=== PATIENT | female | born 1955 | race Caucasian/White ===

== ENCOUNTER 2018-08-20 13:14 | Inpatient (IN) ==
[2018-08-20 13:38] LABS: Basophils # (auto) 0.03 K/uL (0-0.2); Basophils % (auto) 0.4 %; Eosinophils # (auto) 0.11 K/uL (0-0.5); Eosinophils % (auto) 1.4 %; Hematocrit (blood only) 39.2 % (37-47); Hemoglobin 13.4 g/dL (12.0-16.0); Immature Granulocytes # (auto) 0.01 K/uL (0.00-0.02); Immature Granulocytes % (auto) 0.1 %; Lymphocytes # (auto) 1.63 K/uL (1.2-3.4); Mean Corpuscular Hgb Conc 34.2 g/dL (32-36); Mean Corpuscular Volume 94.2 fL (80-100); Mean Platelet Volume 11.8 fL (7.4-10.4); Monocytes # (auto) 0.47 K/uL (0.11-0.59); Monocytes % (auto) 6.1 %; Neutrophils # (auto) 5.51 K/uL (1.4-6.5); Platelet Count 237 K/uL (130-400); RDW Coefficient of Variation 14.5 % (11.5-14.5); RDW Standard Deviation 50.2 fL (36.4-46.3); Red Blood Count 4.16 M/uL (4.2-5.4); White Blood Count 7.76 K/uL (4.8-10.8)
[2018-08-20] MEDS ORDERED: OPTIRAY 320 125ml IV PRN (13:40)
--- NOTE | 2018-08-20 13:42 | CT Scan Report ---
CT SCAN OF THE BRAIN WITHOUT IV CONTRAST CLINICAL HISTORY: Strokelike symptoms. COMPARISON STUDY: No priors. TECHNIQUE: Unenhanced axial CT scan of the brain is performed from the vertex to the skull base. A do se lowering technique was utilized adhering to the principles of ALARA. FINDINGS: Brain parenchyma: The brain parenchyma is normal in appearance. There is no hemorrhage, mass effect, or evidence of acute territorial ischemia by CT criteria. Cosme-white matter differentiation is preser ravi. No extra-axial fluid collection is seen. Ventricles, sulci, cisterns: Normal in configuration. Intracranial vasculature: The visualized intracranial vessels at the skull base are normal in appeara nce. Calvarium: Unremarkable. Sinuses and mastoids: A subcentimeter osteoma is noted within the left ethmoid sinus. A retention cys t is noted in left sphenoid sinus. The visualized paranasal sinuses are otherwise clear. The mastoid air cells are well pneumatized. Orbits: The bony orbits are grossly intact. IMPRESSION: There is no hemorrhage, mass effect, or evidence of acute territorial ischemia by CT sal collazo. Electronically signed by: Donald Novoa M.D. 08/20/2018 1:37 PM
[2018-08-20 13:49] LABS: Partial Thromboplastin Ratio 0.9; Partial Thromboplastin Time 23.7 Seconds (21.0-31.0); Prothrombin Time 10.7 Seconds (9.0-12.0)
--- NOTE | 2018-08-20 13:50 | CT Scan Report ---
CT angio head w con CLINICAL HISTORY: 63 years-old Female presenting with code stroke. TECHNIQUE: Multidetector CT angiography of the head was performed after the administration of intrave nous contrast. 3-D volumetric and/or maximum intensity projection (MIP) images were subsequently betty nstructed for review. IV contrast: 119 mL of Optiray 320. One or more dose lowering techniques were u sed consistent with the principles of ALARA (as low as reasonably achievable), including automatic ex posure control, mA or kV adjustment to individual patient size, and/or use of iterative reconstructio n. COMPARISON: None. CT DOSE (mGy.cm): The estimated cumulative dose is 1076.09. FINDINGS: Pillar Worker topogram: Unremarkable. Evaluation is mildly degraded by opacification of the intracranial veins. Anterior circulation: Intracranial portions of the internal carotid arteries patent to the level of t he termini. Anterior cerebral arteries patent. Middle cerebral arteries patent. Anterior communicatin g artery hypoplastic or aplastic. Posterior circulation: Codominant vertebral arteries. Intradural portions of the vertebral arteries p atent. Posterior inferior cerebellar arteries patent. Basilar artery patent. Anterior inferior cerebe llar arteries poorly visualized. Superior cerebellar arteries patent. Posterior cerebral arteries pat ent. Right posterior communicating artery patent. Left P-comm hypoplastic or aplastic. Dural venous sinuses: Patent. Other: Allowing for the phase of contrast, brain parenchyma within normal limits. Calvarium intact. IMPRESSION: 1. No evidence of aneurysm, focal vessel occlusion, or significant stenosis of the intracranial loki catalino. Electronically signed by: Porter Serna M.D. 08/20/2018 1:48 PM
[2018-08-20 13:56] LABS: Alanine Aminotransferase 34 U/L (12-78); Albumin Level 4.1 gm/dl (3.4-5.0); Aspartate Aminotransferase 30 U/L (15-37); BUN Creatinine Ratio 16.2 (10-20); Blood Urea Nitrogen 15 mg/dl (7-18); Calcium 9.2 mg/dl (8.5-10.1); Carbon Dioxide 24 mmol/L (21-32); Chloride 109 mmol/L (98-107); Creatinine Clr Calc Pharmacy 64.2 ml/min; Est GFR (African American) 75.3; Est GFR (Non-African American) 64.9; Glucose 197 mg/dl (70-99); Potassium 3.8 mmol/L (3.5-5.1); Sodium 141 mmol/L (136-145)
--- NOTE | 2018-08-20 13:58 | CT Scan Report ---
NECK CTA HISTORY: Stroke symptoms. TECHNIQUE: Multiaxial CT images of the neck were performed following the intravenous administration o f contrast to evaluate the major cervical vessels. Maximum intensity projection images were also obta ined. All measurements were calculated based on NASCET criteria. A dose lowering technique was utili zed adhering to the principles of ALARA. COMPARISON STUDY: None. FINDINGS: The aortic arch and proximal great vessels are widely patent. There is no significant sten osis, occlusion, or dissection identified within the bilateral common carotid, internal carotid, or v ertebral arteries. Mild calcified plaque within the bilateral carotid bifurcations. IMPRESSION: No significant stenosis, occlusion, or dissection identified within the carotid or vertebral arteries . Electronically signed by: Abdoul Haque M.D. 08/20/2018 1:57 PM
[2018-08-20 14:00] LABS: Albumin Globulin Ratio 1.1 (0.9-2); Alkaline Phosphatase 55 U/L (45-117); Bilirubin,Total 0.3 mg/dl (0.2-1); Globulin 3.7 gm/dl (2.5-4.0); Total Protein 7.8 gm/dl (6.4-8.2); Troponin I < 0.015 ng/ml (0-0.045)
[2018-08-20] MEDS ORDERED: ASPIRIN CHEW 324 MG PO STA (14:11)
[2018-08-20] MEDS ORDERED: SODIUM CHLORIDE 0.9% 1000ML 1,000 ML IV SCH (14:15)
[2018-08-20 14:21] LABS: iSTAT Creatinine 0.7 mg/dl (0.6-1.3); iSTAT Potassium 3.8 mEq/L (3.3-5.0)
[2018-08-20 14:22] LABS: iSTAT Hemoglobin 13.9 g/dl (12.0-16.0); iSTAT Ionized Calcium 1.17 mmol/l (1.12-1.32)
--- NOTE | 2018-08-20 15:29 | History & Physical Report ---
Date of Service August 20, 2018 Assessment & Plan (1) Expressive aphasia: -Admit to telemetry -Patient and her were driving home from [place] (where they have been living since April since patient's underwent double lung transplant), when patient developed sudden onset of difficulty speaking -In the ED, stroke alert was called however patient was not deemed to be a TPA candidate -Risk factors for CVA: HTN, dyslipidemia, current smoker; no history of diabetes, however glucose 197 on labs -CT head, CTA head/neck negative for acute findings -Patient received full dose aspirin in the ED -Brain MRI, resting echo -Neurochecks -Continue aspirin 81 mg daily and patient's home dose of atorvastatin -Neurology consult, case discussed with Azra Seymour PA-C (2) Hypertension: -Will hold home doses of clonidine and amlodipine/benazepril to allow for permissive hypertension in the setting of possible acute CVA (3) Hyperglycemia: -Glucose noted to be 197 on labs -No history of diabetes -will check BSG's, providing NovoLog if needed -Check Hgb A1c (4) Dyslipidemia: -Continue statin (5) Depression: -Continue BuSpar and venlafaxine (6) DVT prophylaxis: -SQ Lovenox History of Present Illness Chief Complaint: Difficulty speaking Primary Care Provider: Dulce Whittaker DO 63-year-old female who presents to the ED with difficulty speaking. Patient and her were driving back from [place], where they had been living since April after her underwent a double lung transplant. Around 1130, while driving, patient had difficulty speaking. She continued to drive for about another hour until they stopped at a restaurant for something to eat. Her symptoms continued and EMS was called and patient was brought to the ED for further evaluation. Stroke alert was called however patient was not felt to be a TPA candidate. With her symptoms today, there was no associated facial droop, slurred speech, unilateral weakness, numbness, tingling. No headache or blurred vision. Patient reports she has been feeling well recently, however has been under a large amount of stress secondary to her 's recent health issues. Patient denies chest pain shortness of breath. No lightheadedness, dizziness, diaphoresis, syncopal events. She denies abdominal pain, nausea, vomiting, d iarrhea. No fevers chills. She denies any urinary symptoms. In the ED, head CT and head/neck CTA are negative for acute findings. Patient was given a full dose aspirin. Allergies Allergy/AdvReac Type Severity Reaction Status Date / Time No Known Drug Allergies Allergy Unknown . Verified 08/20/18 17:19 Home Medications Home Medications Medication Instructions Recorded Confirmed Type amlodipine-atorvastatin 1 tab PO DAILY 08/20/18 08/20/18 History aspirin 81 mg PO DAILY 08/20/18 08/20/18 History atorvastatin 40 mg PO HS 08/20/18 08/20/18 History buspirone 10 mg PO BID 08/20/18 08/20/18 History cholecalciferol (vitamin D3) 1,000 unit PO DAILY 08/20/18 08/20/18 History [Vitamin D3] clonidine HCl 0.1 mg PO TID 08/20/18 08/20/18 History fexofenadine [Samia Allergy] 180 mg PO DAILY 08/20/18 08/20/18 History methocarbamol 750 mg PO TID PRN 08/20/18 08/20/18 History montelukast 10 mg PO PM 08/20/18 08/20/18 History pyridoxine (vitamin B6) [Vitamin 100 mg PO BID 08/20/18 08/20/18 History B-6] rabeprazole 20 mg PO DAILY PRN 08/20/18 08/20/18 History selenium 200 mcg PO DAILY 08/20/18 08/20/18 History venlafaxine 75 mg PO HS 08/20/18 08/20/18 History Past Med/Surg History Medical History Depression (Chronic) Osteoporosis (Chronic) Hypertension (Chronic) Moderate aortic regurgitation (Chronic) Allergic rhinitis (Chronic) Dyslipidemia (Chronic) DVT prophylaxis Hyperglycemia Surgical History History of tonsillectomy and adenoidectomy (Chronic) S/P LIONEL-BSO (Chronic) Family History Aunt Stroke Father Atrial fibrillation Aortic aneurysm Mother Sudden , Onset Age: 36 "Heart attack" Social History Communication Ability: Effective Ccie Required: No Beliefs That Will Affect Care: None Current Living Situation: Spouse Current Living Situation Comment: 3 story house with Other Information That Helps Us Care for You: No Feels Safe at Home: Yes Safety Concerns: Feels Safe At This Time Smoking Status: Current every day smoker Hx Alcohol Use: No Hx Substance Use: No Review of Systems ROS per HPI, all other systems reviewed and negative Physical Exam Vital Signs (Past 24 Hours): Last Vital Signs Temp 36.8 C 08/20/18 13:22 Pulse 96 H 08/20/18 13:56 Resp 18 08/20/18 13:56 BP 152/59 H 08/20/18 13:56 Pulse Ox 99 08/20/18 13:56 Constitutional: WD/WN, vitals as above Eyes: PERRL, conjunctivae normal, anicteric sclerae ENMT: external ear and nose normal, oropharynx normal Respiratory: normal respiratory effort, lungs clear to auscultation Cardiovascular: Rate/Rhythm: regular rate and regular rhythm Vessels: n ormal peripheral pulses Extremities: no edema Gastrointestinal (Abdomen): normal bowel sounds, soft, nontender, no hepatosplenomegaly Musculoskeletal: no cyanosis or clubbing, extremities motor strength 5/5 Skin: no rashes, warm and dry Neurologic: awake Speech / Cognition: + expressive aphasia (Mild) Motor/Sensory: no pronator drift Cranial Nerves: PERRL, normal accommodation, EOM intact bilaterally, normal facial strength, tongue midline, able to rotate head bilaterally and no nystagmus Coordination: normal [id number] test and normal [id number]-[id number] test Psychiatric: A+Ox3, euthymic affect Results & Data Laboratory Results Laboratory Last Values WBC 7.76 K/uL (4.8-10.8) 08/20/18 13:27 RBC 4.16 M/uL (4.2-5.4) L 08/20/18 13:27 Hgb 13.4 g/dL (12.0-16.0) 08/20/18 13:27 POC Hgb 13.9 g/dl (12.0-16.0) 08/20/18 13:32 Hct 39.2 % (37-47) 08/20/18 13:27 POC Hct 41 % (37-47) 08/20/18 13:32 MCV 94.2 fL (80-100) 08/20/18 13:27 MCH 32.2 pg (25-34) 08/20/18 13:27 MCHC 34.2 g/dL (32-36) 08/20/18 13:27 RDW Std Deviation 50.2 fL (36.4-46.3) H 08/20/18 13:27 RDW Coeff of Jelena 14.5 % (11.5-14.5) 08/20/18 13:27 Plt Count 237 K/uL (130-400) 08/20/18 13:27 MPV 11.8 fL (7.4-10.4) H 08/20/18 13:27 Immature Gran % (Auto) 0.1 % 08/20/18 13:27 Neut % (Auto) 71.0 % 08/20/18 13:27 Lymph % (Auto) 21.0 % 08/20/18 13:27 [place] % (Auto) 6.1 % 08/20/18 13:27 Eos % (Auto) 1.4 % 08/20/18 13:27 Baso % (Auto) 0.4 % 08/20/18 13:27 Immature Gran # (Auto) 0.01 K/uL (0.00-0.02) 08/20/18 13:27 Neut # (Auto) 5.51 K/uL (1.4-6.5) 08/20/18 13:27 Lymph # (Auto) 1.63 K/uL (1.2-3.4) 08/20/18 13:27 [place] # (Auto) 0.47 K/uL (0.11-0.59) 08/20/18 13:27 Eos # (Auto) 0.11 K/uL (0-0.5) 08/20/18 13:27 Baso # (Auto) 0.03 K/uL (0-0.2) 08/20/18 13:27 PT 10.7 Seconds (9.0-12.0) 08/20/18 13:27 INR 1.0 (0.9-1.1) 08/20/18 13:27 APTT 23.7 Seconds (21.0-31.0) 08/20/18 13:27 PTT Ratio 0.9 08/20/18 13:27 POC Sodium 141 mEq/L (135-144) 08/20/18 13:32 Sodium 141 mmol/L (136-145) 08/20/18 13:27 POC Potassium 3.8 mEq/L (3.3-5.0) 08/20/18 13:32 Potassium 3.8 mmol/L (3.5-5.1) 08/20/18 13:27 POC Chloride 105 mEq/L (101-112) 08/20/18 13:32 Chloride 109 mmol/L (98-107) H 08/20/18 13:27 Carbon Dioxide 24 mmol/L (21-32) 08/20/18 13:27 POC Total CO2 23 mEq/l (24-31) L 08/20/18 13:32 Anion Gap 7.0 (3-11) 08/20/18 13:27 POC Anion Gap 18.0 mmol/L (16-25) 08/20/18 13:32 POC BUN 16 mg/dl (7-18) 08/20/18 13:32 BUN 15 mg/dl (7-18) 08/20/18 13:27 Creatinine 0.93 mg/dl (0.6-1.2) 08/20/18 13:27 POC Creatinine 0.7 mg/dl (0.6-1.3) 08/20/18 13:32 Est Cr Clr Drug Dosing 64.2 ml/min 08/20/18 13:27 Est GFR ( Amer) 75.3 08/20/18 13:27 Est GFR (Non-Af Amer) 64.9 08/20/18 13:27 BUN/Creatinine Ratio 16.2 (10-20) 08/20/18 13:27 Glucose 197 mg/dl (70-99) H 08/20/18 13:27 POC Glucose (other) 199 mg/dl (70-99) H 08/20/18 13:32 Calcium 9.2 mg/dl (8.5-10.1) 08/20/18 13:27 POC Ioniz Calcium Jasmine 1.17 mmol/l (1.12-1.32) 08/20/18 13:32 Magnesium 2.0 mg/dl (1.8-2.4) 08/20/18 13:27 Total Bilirubin 0.3 mg/dl (0.2-1) 08/20/18 13:27 AST 30 U/L (15-37) 08/20/18 13:27 ALT 34 U/L (12-78) 08/20/18 13:27 Alkaline Phosphatase 55 U/L (45-117) 08/20/18 13:27 Troponin I < 0.015 ng/ml (0-0.045) 08/20/18 13:27 Total Protein 7.8 gm/dl (6.4-8.2) 08/20/18 13:27 Albumin 4.1 gm/dl (3.4-5.0) 08/20/18 13:27 Globulin 3.7 gm/dl (2.5-4.0) 08/20/18 13:27 Albumin/Globulin Ratio 1.1 (0.9-2) 08/20/18 13:27 Blood Type A Positive 08/20/18 13:25 Antibody Screen NEGATIVE 08/20/18 13:[address] IMPRESSION: There is no hemorrhage, mass effect, or evidence of acute territorial ischemia by CT criteria. HEAD CTA IMPRESSION: 1. No evidence of aneurysm, focal vessel occlusion, or significant stenosis of the intracranial arteries. NECK CTA IMPRESSION: No significant stenosis, occlusion, or dissection identified within the carotid or vertebral arteries. Code Status & VTE Plan VTE Prophylaxis Plan VTE Prophylaxis will be ordered: Yes Supervising Physician Co-Signing Physician Notes Patient is a 63-year-old female with history of hypertension, dyslipidemia, depression and other problems presents with history of word finding difficulty. Patient had sudden onset of symptoms at around 11 AM this morning. Patient currently has been undergoing through a lot of stress lately. Patient denied any history of weakness numbness, incontinence, facial deformity, change in vision. Patient symptoms gradually have been improving since presentation in ED. Imaging studies including CT head, CTA of the head and neck showed no acute findings. On exam patient is moderately built and nourished, tearful during my conversation, normocephalic atraumatic, lungs are clear to auscultation, S1-S2, no murmur, abdomen is soft nontender, no sensorimotor deficits, no pedal edema. Currently able to speak in full sentences. Patient is admitted in telemetry unit for management of expressive aphasia, rule out CVA.DD: Conversion disorder. Patient is on aspirin 81 mg and Lipitor 40 mg at home. I had Plavix daily. Stroke workup including MRI, echo, neuro checks. Neurology is consulted. Agree with holding hypertension meds in setting of acute CVA. Check A1c to rule out DM II. Consider Psychiatry consultation if needed. I personally reviewed the record. Patient is interviewed and examined at bedside. Patient's care is coordinated with Jacquie Bautista NP. Please refer to the documentation above for details of patient's presentation and for discussion of other issues.
[2018-08-20] MEDS ORDERED: PHARMACIST DISCHARGE MED REC CONSULT PRN (16:47)
[2018-08-20] MEDS ORDERED: LORazepam 1 MG/2 ML VIAL IV PRN (17:13)
[2018-08-20] MEDS ORDERED: CARBOHYDRATES FOR HYPOGLYCEMIA PO PRN (19:56)
[2018-08-20] MEDS ORDERED: GLUCOSE 10 TABS/TUBE PO PRN (19:56)
[2018-08-20] MEDS ORDERED: GLUCAGON FOR INJ 1 MG VIAL SQ PRN (19:56)
[2018-08-20] MEDS ORDERED: DEXTROSE 50% 50 ML SYRINGE IV PRN (19:56)
[2018-08-20] MEDS ORDERED: GLUCOSE 40% GEL 15 GM TUBE PO PRN (19:56)
--- NOTE | 2018-08-20 20:01 | Emergency Department Note ---
Entered by Judi Vargas acting as a scribe for History of Present Illness General Chief complaint: Stroke/CVA Symptoms Source: patient Limitations: no limitations History of Present Illness Provider complaint: stroke Onset (ago): hour(s) 2 Location: chest Associated symptoms: + other (+difficulty finding words, +slurred speech) Treatments prior to arrival: none The patient is a 63 year old female who presents to the Emergency Room with complaints of difficulty speaking that began 2 hours prior to arrival. The patient states that she had difficulty finding her words and had slurred speech. The patient denies being on blood thinners. No falls or trauma. The patient denies a history of strokes, kidney disease, intracranial tumors, or internal bleeds. Home Medications Home Medications Medication Instructions Recorded Confirmed Type amlodipine-atorvastatin 1 tab PO DAILY 08/20/18 08/20/18 History aspirin 81 mg PO DAILY 08/20/18 08/20/18 History atorvastatin 40 mg PO HS 08/20/18 08/20/18 History buspirone 10 mg PO BID 08/20/18 08/20/18 History cholecalciferol (vitamin D3) 1,000 unit PO DAILY 08/20/18 08/20/18 History [Vitamin D3] clonidine HCl 0.1 mg PO TID 08/20/18 08/20/18 History fexofenadine [Samia Allergy] 180 mg PO DAILY 08/20/18 08/20/18 History methocarbamol 750 mg PO TID PRN 08/20/18 08/20/18 History montelukast 10 mg PO PM 08/20/18 08/20/18 History pyridoxine (vitamin B6) [Vitamin 100 mg PO BID 08/20/18 08/20/18 History B-6] rabeprazole 20 mg PO DAILY PRN 08/20/18 08/20/18 History selenium 200 mcg PO DAILY 08/20/18 08/20/18 History venlafaxine 75 mg PO HS 08/20/18 08/20/18 History Allergies Allergy/AdvReac Type Severity Reaction Status Date / Time No Known Drug Allergies Allergy Unknown . Verified 08/20/18 17:19 Past Med/Surg History Medical History Depression (Chronic) Osteoporosis (Chronic) Hypertension (Chronic) Moderate aortic regurgitation (Chronic) Allergic rhinitis (Chronic) Dyslipidemia (Chronic) DVT prophylaxis Hyperglycemia Surgical History History of tonsillectomy and adenoidectomy (Chronic) S/P LIONEL-BSO (Chronic) Family History Aunt Stroke Father Atrial fibrillation Aortic aneurysm Mother Sudden , Onset Age: 36 "Heart attack" Social History Communication Ability: Effective Costume Maker Required: No Beliefs That Will Affect Care: None Current Living Situation: Spouse Current Living Situation Comment: 3 story house with Other Information That Helps Us Care for You: No Feels Safe at Home: Yes Safety Concerns: Feels Safe At This Time Smoking Status: Current every day smoker Hx Alcohol Use: No Hx Substance Use: No Review of Systems See HPI for pertinent positives & negatives. and A total of 10 systems reviewed and were otherwise negative See HPI for pertinent positives & negatives. A total of 10 systems reviewed and were otherwise negative. Physical Exam Vital Signs Vital Signs - 24 hr 08/20/18 13:20 08/20/18 13:22 08/20/18 13:24 Temperature 36.8 C Temperature Source Oral Sepsis Recent Fever Within 48 Hours No Sepsis New/Unexplained Change in Mental Status No Sepsis Action Taken by Nursing No Action Required Pulse Rate 84 95 H 94 H Pulse Rate [Apical] Pulse Rate from SpO2 Sensor 95 H Pulse Rhythm [Apical] Pulse Strength [Apical] Respiratory Rate 21 20 15 Respiratory Effort / Characteristics Non-Labored Respiratory Depth Normal Respiratory Pattern Regular Blood Pressure 149/81 H 149/81 H Blood Pressure [Right Arm] Blood Pressure Mean 103 103 Blood Pressure Mean [Right Arm] Blood Pressure Position [Right Arm] Pulse Oximetry 99 98 Oxygen Delivery Method Room Air 08/20/18 13:39 08/20/18 13:40 08/20/18 13:46 Temperature Temperature Source Sepsis Recent Fever Within 48 Hours Sepsis New/Unexplained Change in Mental Status Sepsis Action Taken by Nursing Pulse Rate 90 87 Pulse Rate [Apical] 88 Pulse Rate from SpO2 Sensor 89 88 Pulse Rhythm [Apical] Regular Pulse Strength [Apical] Respiratory Rate 21 21 16 Respiratory Effort / Characteristics Respiratory Depth Normal Respiratory Pattern Blood Pressure 152/59 H Blood Pressure [Right Arm] 152/59 H Blood Pressure Mean 90 Blood Pressure Mean [Right Arm] 90 Blood Pressure Position [Right Arm] Pulse Oximetry 88 L 100 95 Oxygen Delivery Method Room Air 08/20/18 13:56 08/20/18 17:00 Temperature 36.6 C Temperature Source Oral Sepsis Recent Fever Within 48 Hours Sepsis New/Unexplained Change in Mental Status Sepsis Action Taken by Nursing Pulse Rate 71 Pulse Rate [Apical] 96 H 73 Pulse Rate from SpO2 Sensor Pulse Rhythm [Apical] Regular Regular Pulse Strength [Apical] Normal Respiratory Rate 18 20 Respiratory Effort / Characteristics Non-Labored Spontaneous Non-Labored Spontaneous Respiratory Depth Normal Normal Respiratory Pattern Regular Regular Blood Pressure Blood Pressure [Right Arm] 152/59 H 144/81 H Blood Pressure Mean Blood Pressure Mean [Right Arm] 90 102 Blood Pressure Position [Right Arm] Sitting Pulse Oximetry 99 95 Oxygen Delivery Method Room Air Room Air HENT: Exam performed. Head: Normocephalic and atraumatic. Right Ear: External ear normal. No mastoid tenderness. Left Ear: External ear normal. No mastoid tenderness. Mouth/Throat: The oropharynx is clear and moist. No trismus in the jaw. No dental abscesses or uvula swelling. No oropharyngeal exudate or tonsillar abscesses. EYES: Conjunctivae and EOM are normal. Pupils are equal, round, and reactive to light. Right eye exhibits no discharge. Left eye exhibits no discharge. No scleral icterus. NECK: Normal range of motion. Neck supple. No JVD present. No spinous process tenderness present. No carotid bruit present. No rigidity. No tracheal deviation and normal range of motion present. No Brudzinski's sign and no Kernig's sign noted. CV: Normal rate, regular rhythm, normal heart sounds and intact distal pulses. There is no peripheral edema. Palpable radial pulses bue. PULM/CHEST: Effort normal and breath sounds normal. No respiratory distress. No stridor. She has no wheezes. She has no rales. Chest Wall: She exhibits no tenderness. ABD: The abdomen is soft. Bowel sounds are normal. She has no distension. No mass is present. There is no tenderness. There is no rebound, no guarding, no Brian's sign and no tenderness at McBurney's point. Rovsig negative MUSC/SKEL: Normal range of motion. There is no peripheral edema, tenderness or deformity. LYMPH: No cervical adenopathy. NEURO: NIH stroke scale of 2: 1 for dysarthria and 1 for aphasia. SKIN: Skin is warm and dry. She is not diaphoretic. Course 1320: Past medical records reviewed. The patient was evaluated in room A2, and a complete history and physical examination were performed. Code stroke was called. 1331: I discussed the patient's case with Dr. Rhoda Garcia at [facility] who states that he will log in to evaluate the patient. 1340: The patient's CT is negative for acute bleed. Dr.Ibrahimi Garcia at [facility] is on the video screen evaluating the patient. 1413: CTAs of the head and neck are negative. Dr. Duong at [facility] states that patient now has a stroke scale of 1. Dr. Duong, The family decided against giving the patient TPA due to the patient having a low score of 1 on the stroke scale. The patient will be admitted. 1425: [facility] the [facility] who will evaluate the patient for further hospitalization. She states to admit to Dr. Santos. Consultations Consultation #1: Dr.Ibrahimi Alexander at [facility] Time: 13:31 Consultation #2: Dr.Ibrahimi Garcia at [facility] Time: 13:40 Consultation #3: Dr. Rhoda Garcia at [facility] Time: 14:13 Additional Consultation(s): 1425: Jacquie Glass [facility] Hospitalist Administered Medications Lorazepam (Ativan) 1 mg in 2 mls @ 2 mls/min IV ONE PRN PRN Reason: MRI pre med Stop: 09/19/18 17:12 Last Admin: 08/20/18 19:13 Dose: 1 mls/min Documented by: [id number] Discontinued Medications Aspirin (Aspirin) 324 mg PO NOW STA Stop: 08/20/18 14:12 Last Admin: 08/20/18 14:15 Dose: 324 mg Documented by: [id number] Sodium Chloride (Nss 1000ml) 1,000 mls @ 80 mls/hr IV .[id number] AMANDA Stop: 09/19/18 14:14 Last Admin: 08/20/18 14:16 Dose: 80 mls/hr Documented by: [id number] Ioversol (Optiray 320 125ml) 119 ml IV ONCE PRN PRN Reason: Interaction Checking Stop: 08/24/18 13:39 Last Admin: 08/20/18 13:40 Dose: 119 ml Documented by: [id number] Medical Decision Making Medical Records Attestation: I reviewed the patient's medical records. Home Medications Current Medication List: was personally reviewed by me Laboratory Data Attestation: I reviewed the patient's lab results. Result diagrams: 08/20/18 13:27 08/20/18 13:27 Lab Results 08/20/18 08/20/18 08/20/18 Range/Units 13:25 13:27 13:27 WBC 7.76 (4.8-10.8) K/uL RBC 4.16 L (4.2-5.4) M/uL Hgb 13.4 (12.0-16.0) g/dL POC Hgb (12.0-16.0) g/dl Hct 39.2 (37-47) % POC Hct (37-47) % MCV 94.2 (80-100) fL MCH 32.2 (25-34) pg MCHC 34.2 (32-36) g/dL RDW Std Deviation 50.2 H (36.4-46.3) fL RDW Coeff of Jelena 14.5 (11.5-14.5) % Plt Count 237 (130-400) K/uL MPV 11.8 H (7.4-10.4) fL Immature Gran % (Auto) 0.1 % Neut % (Auto) 71.0 % Lymph % (Auto) 21.0 % Addison % (Auto) 6.1 % Eos % (Auto) 1.4 % Baso % (Auto) 0.4 % Immature Gran # (Auto) 0.01 (0.00-0.02) K/uL Neut # (Auto) 5.51 (1.4-6.5) K/uL Lymph # (Auto) 1.63 (1.2-3.4) K/uL Addison # (Auto) 0.47 (0.11-0.59) K/uL Eos # (Auto) 0.11 (0-0.5) K/uL Baso # (Auto) 0.03 (0-0.2) K/uL PT 10.7 (9.0-12.0) Seconds INR 1.0 (0.9-1.1) APTT 23.7 (21.0-31.0) Seconds PTT Ratio 0.9 POC Sodium (135-144) mEq/L Sodium (136-145) mmol/L POC Potassium (3.3-5.0) mEq/L Potassium (3.5-5.1) mmol/L POC Chloride (101-112) mEq/L Chloride (98-107) mmol/L Carbon Dioxide (21-32) mmol/L POC Total CO2 (24-31) mEq/l Anion Gap (3-11) POC Anion Gap (16-25) mmol/L POC BUN (7-18) mg/dl BUN (7-18) mg/dl Creatinine (0.6-1.2) mg/dl POC Creatinine (0.6-1.3) mg/dl Est Cr Clr Drug Dosing ml/min Est GFR ( Amer) Est GFR (Non-Af Amer) BUN/Creatinine Ratio (10-20) Glucose (70-99) mg/dl POC Glucose (other) (70-99) mg/dl Calcium (8.5-10.1) mg/dl POC Ioniz Calcium Jasmine (1.12-1.32) mmol/l Magnesium (1.8-2.4) mg/dl Total Bilirubin (0.2-1) mg/dl AST (15-37) U/L ALT (12-78) U/L Alkaline Phosphatase (45-117) U/L Troponin I (0-0.045) ng/ml Total Protein (6.4-8.2) gm/dl Albumin (3.4-5.0) gm/dl Globulin (2.5-4.0) gm/dl Albumin/Globulin Ratio (0.9-2) Blood Type A Positive Antibody Screen NEGATIVE 08/20/18 08/20/18 Range/Units 13:27 13:32 WBC (4.8-10.8) K/uL RBC (4.2-5.4) M/uL Hgb (12.0-16.0) g/dL POC Hgb 13.9 (12.0-16.0) g/dl Hct (37-47) % POC Hct 41 (37-47) % MCV (80-100) fL MCH (25-34) pg MCHC (32-36) g/dL RDW Std Deviation (36.4-46.3) fL RDW Coeff of Jelena (11.5-14.5) % Plt Count (130-400) K/uL MPV (7.4-10.4) fL Immature Gran % (Auto) % Neut % (Auto) % Lymph % (Auto) % Addison % (Auto) % Eos % (Auto) % Baso % (Auto) % Immature Gran # (Auto) (0.00-0.02) K/uL Neut # (Auto) (1.4-6.5) K/uL Lymph # (Auto) (1.2-3.4) K/uL Addison # (Auto) (0.11-0.59) K/uL Eos # (Auto) (0-0.5) K/uL Baso # (Auto) (0-0.2) K/uL PT (9.0-12.0) Seconds INR (0.9-1.1) APTT (21.0-31.0) Seconds PTT Ratio POC Sodium 141 (135-144) mEq/L Sodium 141 (136-145) mmol/L POC Potassium 3.8 (3.3-5.0) mEq/L Potassium 3.8 (3.5-5.1) mmol/L POC Chloride 105 (101-112) mEq/L Chloride 109 H (98-107) mmol/L Carbon Dioxide 24 (21-32) mmol/L POC Total CO2 23 L (24-31) mEq/l Anion Gap 7.0 (3-11) POC Anion Gap 18.0 (16-25) mmol/L POC BUN 16 (7-18) mg/dl BUN 15 (7-18) mg/dl Creatinine 0.93 (0.6-1.2) mg/dl POC Creatinine 0.7 (0.6-1.3) mg/dl Est Cr Clr Drug Dosing 64.2 ml/min Est GFR ( Amer) 75.3 Est GFR (Non-Af Amer) 64.9 BUN/Creatinine Ratio 16.2 (10-20) Glucose 197 H (70-99) mg/dl POC Glucose (other) 199 H (70-99) mg/dl Calcium 9.2 (8.5-10.1) mg/dl POC Ioniz Calcium Jasmine 1.17 (1.12-1.32) mmol/l Magnesium 2.0 (1.8-2.4) mg/dl Total Bilirubin 0.3 (0.2-1) mg/dl AST 30 (15-37) U/L ALT 34 (12-78) U/L Alkaline Phosphatase 55 (45-117) U/L Troponin I < 0.015 (0-0.045) ng/ml Total Protein 7.8 (6.4-8.2) gm/dl Albumin 4.1 (3.4-5.0) gm/dl Globulin 3.7 (2.5-4.0) gm/dl Albumin/Globulin Ratio 1.1 (0.9-2) Blood Type Antibody Screen Imaging Data Radiologist's Impression: Radiology results as stated below per my review and the radiologist's interpretation: CT SCAN OF THE BRAIN WITHOUT IV CONTRAST CLINICAL HISTORY: Strokelike symptoms. COMPARISON STUDY: No priors. TECHNIQUE: Unenhanced axial CT scan of the brain is performed from the vertex to the skull base. A dose lowering technique was utilized adhering to the principles of ALARA. FINDINGS: Brain parenchyma: The brain parenchyma is normal in appearance. There is no hemorrhage, mass effect, or evidence of acute territorial ischemia by CT criteria. Cosme-white matter differentiation is preserved. No extra-axial fluid collection is seen. Ventricles, sulci, cisterns: Normal in configuration. Intracranial vasculature: The visualized intracranial vessels at the skull base are normal in appearance. Calvarium: Unremarkable. Sinuses and mastoids: A subcentimeter osteoma is noted within the left ethmoid sinus. A retention cyst is noted in left sphenoid sinus. The visualized paranasal sinuses are otherwise clear. The mastoid air cells are well pneumatized. Orbits: The bony orbits are grossly intact. IMPRESSION: There is no hemorrhage, mass effect, or evidence of acute territorial ischemia by CT criteria. Electronically signed by: Donald Novoa M.D. 08/20/2018 1:37 PM NECK CTA HISTORY: Stroke symptoms. TECHNIQUE: Multiaxial CT images of the neck were performed following the intravenous administration of contrast to evaluate the major cervical vessels. Maximum intensity projection images were also obtained. All measurements were calculated based on NASCET criteria. A dose lowering technique was utilized adhering to the principles of ALARA. COMPARISON STUDY: None. FINDINGS: The aortic arch and proximal great vessels are widely patent. There is no significant stenosis, occlusion, or dissection identified within the bilateral common carotid, internal carotid, or vertebral arteries. Mild calcified plaque within the bilateral carotid bifurcations. IMPRESSION: No significant stenosis, occlusion, or dissection identified within the carotid or vertebral arteries. Electronically signed by: Abdoul Haque M.D. 08/20/2018 1:[address] angio head w con CLINICAL HISTORY: 63 years-old Female presenting with code stroke. TECHNIQUE: Multidetector CT angiography of the head was performed after the administration of intravenous contrast. 3-D volumetric and/or maximum intensity projection (MIP) images were subsequently reconstructed for review. IV contrast: 119 mL of Optiray 320. One or more dose lowering techniques were used consistent with the principles of ALARA (as low as reasonably achievable), including au tomatic exposure control, mA or kV adjustment to individual patient size, and/or use of iterative reconstruction. COMPARISON: None. CT DOSE (mGy.cm): The estimated cumulative dose is 1076.09. FINDINGS: Building Carpenter topogram: Unremarkable. Evaluation is mildly degraded by opacification of the intracranial veins. Anterior circulation: Intracranial portions of the internal carotid arteries patent to the level of the termini. Anterior cerebral arteries patent. Middle cerebral arteries patent. Anterior communicating artery hypoplastic or aplastic. Posterior circulation: Codominant vertebral arteries. Intradural portions of the vertebral arteries patent. Posterior inferior cerebellar arteries patent. Basilar artery patent. Anterior inferior cerebellar arteries poorly visualized. Superior cerebellar arteries patent. Posterior cerebral arteries patent. Right posterior communicating artery patent. Left P-comm hypoplastic or aplastic. Dural venous sinuses: Patent. Other: Allowing for the phase of contrast, brain parenchyma within normal limits. Calvarium intact. IMPRESSION: 1. No evidence of aneurysm, focal vessel occlusion, or significant stenosis of the intracranial arteries. Electronically signed by: Porter Serna M.D. 08/20/2018 1:48 PM ECG Data Attestation: I personally reviewed and interpreted this ECG as follows: Indication: other (stroke) Rate (beats per minute): 86 Rhythm: sinus rhythm Findings: + other (OK interval 144, QRS interval 164, QTC interval 533, Sgarbossa negative) and + LBBB Blood Pressure Blood Pressure Findings: Elevated blood pressure Blood Pressure Disposition: further management by hospitalist WALKER Mendoza 1320: Past medical records reviewed. The patient was evaluated in room A2, and a complete history and physical examination were performed. Code stroke was called. 1331: I discussed the patient's case with Dr. Rhoda Garcia at [facility] who states that he will log in to evaluate the patient. 1340: The patient's CT is negative for acute bleed. Dr.Ibrahimi Garcia at [facility] is on the video screen evaluating the patient. 1413: CTAs of the head and neck are negative. Dr. Duong at [facility] states that patient now has a stroke scale of 1. I discussed these findings with the patient's family and discussed the option of giving the patient TPA. The family decided against giving the patient TPA due to the patient having a low score of 1 on the stroke scale. The patient will be admitted. 1425: [facility] who will evaluate the patient for further hospitalization. She states to admit to Dr. Santos. Impression & Plan Acute CVA (cerebrovascular accident) Discharge Plan Visit Data *Final* Discharge Date/Time: 08/20/18 16:07 Chief Complaint: Stroke/CVA Symptoms ED Provider: Ji Ortiz Discharge Problem: Acute CVA (cerebrovascular accident) Patient Disposition: Admitted As Inpatient Discharge Instructions Interventions: ED Discharge Assessment Last Done: 08/20/18 16:07 The scribe's documentation has been prepared under my direction and personally reviewed by me in its entirety. I confirm that the note above accurately reflects all work, treatment, procedures, and medical decision making performed by me.
[2018-08-20] MEDS ORDERED: GADOBUTROL 65ML VIAL IV PRN (20:34)
--- NOTE | 2018-08-20 20:43 | Magnetic Resonance Report ---
MRI OF THE BRAIN WITHOUT AND WITH IV CONTRAST CLINICAL HISTORY: Stroke. COMPARISON STUDY: Head CT and CTA of the head performed earlier today. TECHNIQUE: Utilizing a 1.5 Sofya magnet and dedicated coil, multiplanar, multiecho imaging of the br ain was performed pre and postcontrast administration. IV administration of 7 mL of Gadavist contras t was uneventful. FINDINGS: Note is made of a 3.8 x 2.6 cm focus of restricted diffusion within the left parietal lobe. There is no mass effect. No hemorrhage is present. Ventricular system is normal. The basilar cistern s are patent. There are no extra-axial collections. No intracranial mass or pathologic enhancement is identified. 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 This i s benign. Exam is mildly compromised by motion artifact. Calvarial signal is maintained. IMPRESSION: 3.8 x 2.6 cm acute infarct within left parietal lobe. No mass effect. No hemorrhage. Electronically signed by: Thad Alatorre M.D. 08/20/2018 8:41 PM
[2018-08-20] MEDS: PYRIDOXINE HCL 50 MG TAB PO SCH (20:55)
[2018-08-20] MEDS: VENLAFAXINE HCL XR 75 MG CAPXR PO SCH (20:56)
[2018-08-20] MEDS: ENOXAPARIN INJ 40 MG/0.4 ML SYR SQ SCH (20:56)
[2018-08-20] MEDS: MONTELUKAST SODIUM 10 MG TABLET PO SCH (20:56)
[2018-08-20] MEDS: ATORVASTATIN 40 MG TAB PO SCH (20:56)
[2018-08-20] MEDS: ACETAMINOPHEN 325 MG TAB PO PRN (21:02)
[2018-08-20] MEDS: INSULIN ASPART 100 UNITS/ML 3 ML PEN SC SCH (21:06)
[2018-08-21] MEDS: ACETAMINOPHEN 325 MG TAB PO PRN ×3 (03:27→19:02)
[2018-08-21] MEDS ORDERED: MoRPHine SULFATE 2 MG/ML CARP IV PRN (03:44)
[2018-08-21 05:47] LABS: Basophils # (auto) 0.02 K/uL (0-0.2); Basophils % (auto) 0.3 %; Eosinophils # (auto) 0.21 K/uL (0-0.5); Eosinophils % (auto) 3.3 %; Hematocrit (blood only) 36.9 % (37-47); Hemoglobin 12.6 g/dL (12.0-16.0); Immature Granulocytes # (auto) 0.01 K/uL (0.00-0.02); Immature Granulocytes % (auto) 0.2 %; Lymphocytes # (auto) 1.83 K/uL (1.2-3.4); Lymphocytes % (auto) 28.5 %; Mean Corpuscular Hgb Conc 34.1 g/dL (32-36); Mean Corpuscular Volume 94.1 fL (80-100); Mean Platelet Volume 11.4 fL (7.4-10.4); Monocytes # (auto) 0.56 K/uL (0.11-0.59); Monocytes % (auto) 8.7 %; Neutrophils # (auto) 3.79 K/uL (1.4-6.5); Platelet Count 219 K/uL (130-400); RDW Coefficient of Variation 14.7 % (11.5-14.5); RDW Standard Deviation 50.4 fL (36.4-46.3); Red Blood Count 3.92 M/uL (4.2-5.4); White Blood Count 6.42 K/uL (4.8-10.8)
[2018-08-21 06:11] LABS: BUN Creatinine Ratio 17.4 (10-20); Calcium 8.5 mg/dl (8.5-10.1); Creatinine Clr Calc Pharmacy 74.1 ml/min; Est GFR (African American) 94.6; Est GFR (Non-African American) 81.6; Potassium 4.1 mmol/L (3.5-5.1)
[2018-08-21 06:44] LABS: Estimated Average Glucose 126 mg/dl
[2018-08-21] MEDS: CHOLECALCIFEROL 1,000 UNITS TAB PO SCH (07:42)
[2018-08-21] MEDS: FEXOFENADINE HCL 180 MG TAB PO SCH (07:42)
[2018-08-21] MEDS: ASPIRIN 81 MG ECTAB PO SCH (07:42)
[2018-08-21] MEDS: PYRIDOXINE HCL 50 MG TAB PO SCH ×2 (07:43→21:29)
[2018-08-21] MEDS: CLOPIDOGREL BISULFATE 75 MG TAB PO SCH (07:43)
[2018-08-21] MEDS ORDERED: NON-FORMULARY MEDICATION (Selenium 200 MCG) PO SCH (09:00)
[2018-08-21] MEDS: INSULIN ASPART 100 UNITS/ML 3 ML PEN SC SCH ×4 (09:28→21:44)
--- NOTE | 2018-08-21 14:08 | Hospitalist Progress Note ---
Date of Service August 21, 2018 Assessment & Plan (1) Expressive aphasia: -Has 3.8 x 2.6 cm acute infarct within left parietal lobe. No mass effect. No hemorrhage. -Patient and her were driving home from [place] (where they have been living since April since patient's underwent double lung transplant), when patient developed sudden onset of difficulty speaking -Risk factors for CVA: HTN, dyslipidemia, current smoker; no history of diabetes, however glucose 197 on labs -CT head, CTA head/neck negative for acute findings -Patient received full dose aspirin in the ED -Neurochecks -Continue aspirin 81 mg daily and Plavix added -Neurology consult, case discussed with Azra Seymour PA-C -Echo is pending -Feeling a lot better with minimal dysphasia but no other neuro deficit -We will get PT and OT evaluation (2) Hypertension: -Will hold home doses of clonidine and amlodipine/benazepril to allow for permissive hypertension in the setting of possible acute CVA -BP is controlled (3) Hyperglycemia: -Glucose noted to be 197 on labs -No history of diabetes -will check BSG's, providing NovoLog if needed -Check Hgb A1c-6.0 (4) Dyslipidemia: -Continue statin -Cholesterol are within normal range (5) Depression: -Continue BuSpar and venlafaxine (6) DVT prophylaxis: -SQ Lovenox -We will get PT and OT evaluation -Possible discharge following neurological evaluation Subjective 08/21 Patient was seen and examined in the telemetry unit She is a 63-year-old female with significant past medical history of hypertension, hyperlipidemia and depression was admitted with acute stroke She has been feeling better since admission especially her dysarthria is improved She denies any other neurological deficit Physical Exam Vital Signs (Past 24 Hours): Last Vital Signs Temp 36.3 C L 08/21/18 11:20 Pulse 61 08/21/18 11:20 Resp 18 08/21/18 11:20 BP 131/74 08/21/18 11:20 Pulse Ox 98 08/21/18 11:20 Physical Exam: Lying in bed comfortably without any facial asymmetry Constitutional: WD/WN, vitals as above Eyes: PERRL, conjunctivae normal, anicteric sclerae ENMT: external ear and nose normal, oropharynx normal Respiratory: normal respiratory effort, lungs clear to auscultation Cardiovascular: Rate/Rhythm: regular rate and regular rhythm Vessels: normal peripheral pulses Extremities: no edema Gastrointestinal (Abdomen): normal bowel sounds, soft, nontender, no hepatosplenomegaly Musculoskeletal: no cyanosis or clubbing, extremities motor strength 5/5 Skin: no rashes, warm and dry Neurologic: PERRL, EOMI, accommodation nl, no face palsy, no dysarthria awake Speech / Cognition: + expressive aphasia (Mild) Motor/Sensory: no pronator drift Cranial Nerves: PERRL, normal accommodation, EOM intact bilaterally, normal facial strength, tongue midline, able to rotate head bilaterally and no nystagmus Coordination: normal euczbk-zv-lcoz test and normal zwgg-vr-sqvd test Psychiatric: A+Ox3, euthymic affect Results & Data Laboratory Results Short CBC 08/21/18 Range/Units 05:35 WBC 6.42 (4.8-10.8) K/uL Hgb 12.6 (12.0-16.0) g/dL Hct 36.9 L (37-47) % Plt Count 219 (130-400) K/uL [facility] 08/21/18 05:35 Sodium 141 Potassium 4.1 Chloride 111 H Carbon Dioxide 25 BUN 13 Creatinine 0.77 Glucose 107 H Calcium 8.5 Medications Administered Current Inpatient Medications Acetaminophen (Tylenol) 650 mg PO Q4H PRN PRN Reason: Pain or Fever Stop: 09/19/18 16:46 Last Admin: 08/21/18 09:35 Dose: 650 mg Documented by: Aspirin (Ecotrin Ectab) 81 mg PO QAM [facility] Stop: 09/20/18 08:59 Last Admin: 08/21/18 07:42 Dose: 81 mg Documented by: Atorvastatin Calcium (Lipitor) 40 mg PO HS [facility] Stop: 09/19/18 20:59 Last Admin: 08/20/18 20:56 Dose: 40 mg Documented by: Buspirone HCl (Buspar) 10 mg PO BID [facility] Stop: 09/19/18 20:59 Last Admin: 08/21/18 07:42 Dose: 10 mg Documented by: Clopidogrel Bisulfate (Plavix) 75 mg PO QAM [facility] Stop: 09/20/18 08:59 Last Admin: 08/21/18 07:43 Dose: 75 mg Documented by: Dextrose (Dextrose 50%) 25 - 50 ml IV UD PRN; Protocol PRN Reason: Hypoglycemia Protocol Stop: 09/19/18 19:55 Enoxaparin Sodium (Lovenox) 40 mg SQ Q24H [facility] Stop: 09/19/18 20:59 Last Admin: 08/20/18 20:56 Dose: 40 mg Documented by: Fexofenadine HCl (Samia) 180 mg PO DAILY [facility] Stop: 09/20/18 08:59 Last Admin: 08/21/18 07:42 Dose: 180 mg Documented by: Gadobutrol (Gadavist 65ml) 7 ml IV ONCE PRN PRN Reason: Interaction Checking Stop: 08/24/18 20:33 Last Admin: 08/20/18 20:34 Dose: 7 ml Documented by: Glucagon (Glucagen) 1 mg SQ UD PRN; Protocol PRN Reason: Hypoglycemia Protocol Stop: 09/19/18 19:55 Glucose (Glucose 40%) 15 - 30 gm PO UD PRN; Protocol PRN Reason: Hypoglycemia Protocol Stop: 09/19/18 19:55 Glucose (Dex4 Glucose) 4 - 8 tabs PO UD PRN; Protocol PRN Reason: Hypoglycemia Protocol Stop: 09/19/18 19:55 Lorazepam (Ativan) 1 mg in 2 mls @ 2 mls/min IV ONE PRN PRN Reason: MRI pre med Stop: 09/19/18 17:12 Last Admin: 08/20/18 19:13 Dose: 1 mls/min Documented by: Insulin Aspart (Novolog Flexpen) 0 units SC ACHS [facility] Stop: 09/19/18 20:59 Last Admin: 08/21/18 09:28 Dose: Not Given Documented by: Miscellaneous (Carbohydrates For Hypoglycemia) 15 - 30 gm PO UD PRN PRN Reason: Hypoglycemia Treatment Stop: 09/19/18 19:55 Miscellaneous Information (Pharmacist Discharge Med Rec Consult) 1 ea N/A UD PRN PRN Reason: Consult Stop: 09/19/18 16:46 Montelukast Sodium (Singulair) 10 mg PO PM [facility] Stop: 09/19/18 20:59 Last Admin: 08/20/18 20:56 Dose: 10 mg Documented by: Morphine Sulfate (Morphine Sulfate) 2 mg IV Q4H PRN PRN Reason: Pain Stop: 09/04/18 03:43 Pyridoxine HCl (Vitamin B-6) 100 mg PO BID [facility] Stop: 09/19/18 20:59 Last Admin: 08/21/18 07:43 Dose: 100 mg Documented by: Venlafaxine HCl (Effexor Extended Release) 75 mg PO HS [facility] Stop: 09/19/18 20:59 Last Admin: 08/20/18 20:56 Dose: 75 mg Documented by: Vitamin D (Vitamin D3) 1,000 units PO DAILY [facility] Stop: 09/20/18 08:59 Last Admin: 08/21/18 07:42 Dose: 1,000 units Documented by:
--- NOTE | 2018-08-21 15:17 | Neurology Consultation ---
Date of Consultation August 21, 2018 Assessment & Plan (1) Acute CVA (cerebrovascular accident): 1. MRI brain 3.8 x 2.6 acute infarct 2. CTA head and neck no significant stenosis 3. PT/OT no physical needs will need out patient speech 4. aspirin 81 mg plavix 75 mg added continue dual anti plt therapy x 21 days then stop aspirin and plavix for a lifetime 5. optimize HTN, HLD, DM LDL <70 6. TTE pending read 7. smoking cessation - needed 8. ZIO or cardionet as outpatient. Supervising Physician Co-Signing Physician Notes I have seen and discussed above patient with Dr Juan Levine, neurology Have seen and examined Mrs. Moran today and reviewed her case and the above note with Azra Seymour PA-C. Reviewed her imaging studies including an MRI of the brain which shows evidence for an acute left frontal infarction is consistent with her examination which shows a mild Broca's type aphasia with word finding difficulties but little or nothing else and certainly no motor deficits. We have studied the intracranial and extracranial vessels and find no source of emboli in the echocardiogram shows a dense posterior mitral calcification consistent with a calcified mitral annulus but this is been present for some time and is not changed. At this point the patient has had a second CT scan showing no evidence for hemorrhagic transformation and appropriate diagnostic studies short of an outpatient monitoring study for paroxysmal atrial fibrillation. She resides in [facility] area has a primary care physician in the [facility] and will probably be discharged tomorrow when her daughter can drive here from their home and retrieve her. She should be discharged on 21 days of combined aspirin and Plavix Plavix for life and we will try to set up an outpatient ZIO patch for CardioNet monitoring through the [facility] system try to arrange for her to be seen by someone in neurology in that location and preventive we can an unnecessary visits to [place] Plans have been discussed with the patient, Ness Collins RN patient coordinator She can be discharged tomorrow unless there are significant neurologic changes overnight. Juan Levine MD History of Present Illness Reason for Consultation: aphasia Requesting Physician: Shamir Marte MD Attending Physician: Shamir Marte MD History of Present Illness Pascale is a 63 year old female who presents to the ED with difficulty speaking. She and her were driving back from [place], where they had been living since April after her underwent a double lung transplant. Around 1130, while driving, patient had difficulty speaking. She continued to drive for about another hour until they stopped at a restaurant for something to eat. Her symptoms continued and EMS was called and patient was brought to the ED for further evaluation. Stroke alert was called however patient was not felt to be a TPA candidate. She has been under a large amount of stress secondary to her 's recent health issues. In the ED, head CT and head/neck CTA are negative for acute findings. Patient was given a full dose aspirin. She states she stopped smoking but then restarted because of the stress she has been under. Today she thinks her words are coming out better and she is doing ok with walking. denies CP, SOB, abdominal pain, one sided weakness, numbness, tingling, N, V, swallowing issues, vision changes, headache. Allergies Allergy/AdvReac Type Severity Reaction Status Date / Time No Known Drug Allergies Allergy Unknown . Verified 08/20/18 17:19 Home Medications Home Medications Medication Instructions Recorded Confirmed Type amlodipine-atorvastatin 1 tab PO DAILY 08/20/18 08/20/18 History aspirin 81 mg PO DAILY 08/20/18 08/20/18 History atorvastatin 40 mg PO HS 08/20/18 08/20/18 History buspirone 10 mg PO BID 08/20/18 08/20/18 History cholecalciferol (vitamin D3) 1,000 unit PO DAILY 08/20/18 08/20/18 History [Vitamin D3] clonidine HCl 0.1 mg PO TID 08/20/18 08/20/18 History fexofenadine [Samia Allergy] 180 mg PO DAILY 08/20/18 08/20/18 History methocarbamol 750 mg PO TID PRN 08/20/18 08/20/18 History montelukast 10 mg PO PM 08/20/18 08/20/18 History pyridoxine (vitamin B6) [Vitamin 100 mg PO BID 08/20/18 08/20/18 History B-6] rabeprazole 20 mg PO DAILY PRN 08/20/18 08/20/18 History selenium 200 mcg PO DAILY 08/20/18 08/20/18 History venlafaxine 75 mg PO HS 08/20/18 08/20/18 History Patient History Medical History Depression (Chronic) Osteoporosis (Chronic) Hypertension (Chronic) Moderate aortic regurgitation (Chronic) Allergic rhinitis (Chronic) Dyslipidemia (Chronic) DVT prophylaxis Hyperglycemia Surgical History History of tonsillectomy and adenoidectomy (Chronic) S/P LIONEL-BSO (Chronic) Family History Aunt Stroke Father Atrial fibrillation Aortic aneurysm Mother Sudden , Onset Age: 36 "Heart attack" Social History Communication Ability: Effective Beliefs That Will Affect Care: None Current Living Situation: Spouse Current Living Situation Comment: 3 story house with Other Information That Helps Us Care for You: No Feels Safe at Home: Yes Safety Concerns: Feels Safe At This Time Smoking Status: Current every day smoker Hx Alcohol Use: No Hx Substance Use: No Physical Exam Vital Signs (Past 24 Hours): Last Vital Signs Temp 36.3 C L 08/21/18 11:20 Pulse 61 08/21/18 11:20 Resp 18 08/21/18 11:20 BP 131/74 08/21/18 11:20 Pulse Ox 98 08/21/18 11:20 Physical Exam: Constitutional: appearance nourished, healthy and normal Ears, Nose, Mouth and Throat: mucous membranes moist, no injection and skin normal, eyes normal Cardiovascular: normal S-1 and S-2 and regular rate and rhythm Respiratory: course breath sounds Musculoskeletal: no peripheral edema and good distal pulses Skin: no stigmata of neurocutaneous disease noted and normal and intact Eyes: extraocular muscles intact (EOMI) and pupils equal, round and reactive to light (PERRL) NEUROLOGIC EXAMINATION: Mental status: Alert and interactive Oriented to full date and location Oriented to person Speech dysphasia with continuation of sentences, identifies button, stethoscope, can close eyes stick out tongue, point to ceiling with right hand, difficulty with no ifs ands buts Cranial Nerves smile eye brow raise symmetric Reflexes: Deep tendon reflexes were symmetrical and graded 2/5. Plantar responses were flexor. Sensory: to light and cool touch intact Coordination: Romberg absent, finger to nose intact, heel to guillermo intact Gait/Stance: Posture normal. Gait normal: with steady with steps, base, turning, heel and toe walking and tandem gait. Motor: Negative for pronator drift of out stretched arms with eyes closed. Strength: hand educational technician biceps triceps 5/5 bilaterally, hip flex plantar flex ext 5/5 bilaterally Results & Data Laboratory Results Abnormal lab results 08/20/18 08/21/18 08/21/18 Range/Units 13:40 05:35 05:35 RBC 3.92 L (4.2-5.4) M/uL Hct 36.9 L (37-47) % RDW Std Deviation 50.4 H (36.4-46.3) fL RDW Coeff of Jelena 14.7 H (11.5-14.5) % MPV 11.4 H (7.4-10.4) fL Chloride 111 H (98-107) mmol/L Glucose 107 H (70-99) mg/dl POC Glucose 215 H (70-99) Hemoglobin A1c (4.5-5.6) % 08/21/18 08/21/18 08/21/18 Range/Units 05:35 07:20 11:18 RBC (4.2-5.4) M/uL Hct (37-47) % RDW Std Deviation (36.4-46.3) fL RDW Coeff of Jelena (11.5-14.5) % MPV (7.4-10.4) fL Chloride (98-107) mmol/L Glucose (70-99) mg/dl POC Glucose 110 H 104 H (70-99) Hemoglobin A1c 6.0 H (4.5-5.6) % Diagnostic Findings CT head- there is no hemorrhage, mass effect, or evidence of acute territorial ischemia by CT criteria. CTA head- No evidence of aneurysm, focal vessel occlusion, or significant stenosis of the intracranial arteries. CTA neck- No significant stenosis, occlusion, or dissection identified within the carotid or vertebral arteries. MRI brain - 3.8 x 2.6 cm acute infarct within left parietal lobe. No mass effect. No hemorrhage. CT head- no hemorrhage, mass effect, or evidence of acute territorial ischemia by CT criteria
--- NOTE | 2018-08-21 15:37 | CT Scan Report ---
CT OF THE HEAD WITHOUT CONTRAST CLINICAL HISTORY: r/o hemorrhagic conversion of stroke COMPARISON STUDY: Head CT and MRI of the brain August 20, 2018. CT DOSE: 537.48 mGy.cm TECHNIQUE: Helical axial images of the head were obtained without IV contrast. Automated exposure con trol was utilized for the study. A dose lowering technique was utilized adhering to the principles o f ALARA. FINDINGS: Note is made of expected evolution of the left parietal lobe infarct since prior MRI. A 3.5 cm hypodensity with loss of pathak-white differentiation within the left parietal lobe is noted. There is no hemorrhage. There is no significant mass effect. Ventricular system is normal. The basilar cis terns are patent. There are no extra-axial collections. There are no significant calvarial abnormalit ies. Visualized portions of the sinuses and mastoid air cells are clear. IMPRESSION: Expected evolution of the left parietal lobe acute infarct since MRI of August 20, 2018. No hemorrhage. No significant mass effect. Electronically signed by: Thad Alatorre M.D. 08/21/2018 3:36 PM
[2018-08-21] MEDS: ATORVASTATIN 40 MG TAB PO SCH (21:28)
[2018-08-21] MEDS: ENOXAPARIN INJ 40 MG/0.4 ML SYR SQ SCH (21:28)
[2018-08-21] MEDS: MONTELUKAST SODIUM 10 MG TABLET PO SCH (21:29)
[2018-08-21] MEDS: VENLAFAXINE HCL XR 75 MG CAPXR PO SCH (21:29)
[2018-08-22] MEDS: ACETAMINOPHEN 325 MG TAB PO PRN (00:07)
[2018-08-22 06:32] LABS: Basophils # (auto) 0.02 K/uL (0-0.2); Basophils % (auto) 0.4 %; Eosinophils % (auto) 1.9 %; Hematocrit (blood only) 37.1 % (37-47); Hemoglobin 12.7 g/dL (12.0-16.0); Lymphocytes # (auto) 1.66 K/uL (1.2-3.4); Mean Corpuscular Hgb Conc 34.2 g/dL (32-36); Mean Corpuscular Volume 93.5 fL (80-100); Mean Platelet Volume 11.3 fL (7.4-10.4); Monocytes # (auto) 0.49 K/uL (0.11-0.59); Monocytes % (auto) 9.4 %; Neutrophils # (auto) 2.92 K/uL (1.4-6.5); Neutrophils % (auto) 56.3 %; Platelet Count 202 K/uL (130-400); RDW Coefficient of Variation 14.2 % (11.5-14.5); RDW Standard Deviation 48.7 fL (36.4-46.3); Red Blood Count 3.97 M/uL (4.2-5.4); White Blood Count 5.19 K/uL (4.8-10.8)
[2018-08-22 06:59] LABS: BUN Creatinine Ratio 10.6 (10-20); Calcium 8.7 mg/dl (8.5-10.1); Creatinine Clr Calc Pharmacy 65.5 ml/min; Est GFR (African American) 81.6; Est GFR (Non-African American) 70.4; Potassium 3.9 mmol/L (3.5-5.1)
[2018-08-22] MEDS: PYRIDOXINE HCL 50 MG TAB PO SCH (08:38)
[2018-08-22] MEDS: CHOLECALCIFEROL 1,000 UNITS TAB PO SCH (08:38)
[2018-08-22] MEDS: CLOPIDOGREL BISULFATE 75 MG TAB PO SCH (08:39)
[2018-08-22] MEDS: ASPIRIN 81 MG ECTAB PO SCH (08:39)
[2018-08-22] MEDS: FEXOFENADINE HCL 180 MG TAB PO SCH (08:39)
[2018-08-22] MEDS: INSULIN ASPART 100 UNITS/ML 3 ML PEN SC SCH (08:40)
--- NOTE | 2018-08-22 10:10 | Hospitalist Progress Note ---
Date of Service August 22, 2018 Assessment & Plan (1) Expressive aphasia: -Has 3.8 x 2.6 cm acute infarct within left parietal lobe. No mass effect. No hemorrhage. -Patient and her were driving home from [place] (where they have been living since April since patient's underwent double lung transplant), when patient developed sudden onset of difficulty speaking -Risk factors for CVA: HTN, dyslipidemia, current smoker; no history of diabetes, however glucose 197 on labs -CT head, CTA head/neck negative for acute findings -Patient received full dose aspirin in the ED -Neurochecks -Continue aspirin 81 mg daily and Plavix added -Neurology consult, case discussed with Azra Seymour PA-C -Echo : Normal left ventricular wall thickness and wall motion. EF was 5-70%. Mild to moderate aortic regurgitation. There is 1.5 x 1.8 cm non-mobile echodensity consistent with dense focal posterior mitral annular calcification. Trace to small loculated anterior pleural effusion. There is no echocardiographic indication of cardiac tamponade. Compared to prior study on 01/01/2018 no significant interval change observed. -Feeling a lot better with minimal dysphasia but no other neuro deficit -Looks very depressed otherwise hemodynamically stable -Denies any symptoms -Did very well on physical therapy -We will get PT and OT evaluation (2) Hypertension: -Will hold home doses of clonidine and amlodipine/benazepril to allow for permissive hypertension in the setting of possible acute CVA -BP is controlled (3) Hyperglycemia: -Glucose noted to be 197 on labs -No history of diabetes -will check BSG's, providing NovoLog if needed -Check Hgb A1c-6.0 -Advised to continue with diabetic diet and exercise (4) Dyslipidemia: -Continue statin -Cholesterol are within normal range (5) Depression: -Continue BuSpar and venlafaxine -Acute depression with symptoms Did not want to have any extra medications- (6) DVT prophylaxis: -SQ Lovenox -We will get PT and OT evaluation -Possible discharge following neurological evaluation Will discharge home this morning Subjective 08/21 Patient was seen and examined in the telemetry unit She is a 63-year-old female with significant past medical history of hype rtension, hyperlipidemia and depression was admitted with acute stroke She has been feeling better since admission especially her dysarthria is improved She denies any other neurological deficit 4 The patient was seen and examined today in telemetry unit in presence of the daughter She has been very depressed Has been eating or drinking much She wants to go home Has had physical therapy and did very well Physical Exam Vital Signs (Past 24 Hours): Last Vital Signs Temp 37.3 C 08/22/18 07:49 Pulse 72 08/22/18 07:49 Resp 20 08/22/18 07:49 BP 127/69 08/22/18 07:49 Pulse Ox 96 08/22/18 07:49 Physical Exam: Lying in bed, crying Constitutional: WD/WN, vitals as above Eyes: PERRL, conjunctivae normal, anicteric sclerae ENMT: external ear and nose normal, oropharynx normal Respiratory: normal respiratory effort, lungs clear to auscultation Cardiovascular: Rate/Rhythm: regular rate and regular rhythm Vessels: normal peripheral pulses Extremities: no edema Gastrointestinal (Abdomen): normal bowel sounds, soft, nontender, no hepatosplenomegaly Musculoskeletal: no cyanosis or clubbing, extremities motor strength 5/5 Skin: no rashes, warm and dry Neurologic: PERRL, EOMI, accommodation nl, no face palsy, no dysarthria awake Speech / Cognition: + expressive aphasia (Mild) Motor/Sensory: no pronator drift Cranial Nerves: PERRL, normal accommodation, EOM intact bilaterally, normal facial strength, tongue midline, able to rotate head bilaterally and no nystagmus Coordination: normal cqcitm-lz-mwmi test and normal qicy-jx-tcqg test Psychiatric: Orientation: alert and oriented x 3 Motor Behavior: + psychomotor retardation Affect: + depressed affect Results & Data Laboratory Results Short CBC 08/22/18 Range/Units 06:13 WBC 5.19 (4.8-10.8) K/uL Hgb 12.7 (12.0-16.0) g/dL Hct 37.1 (37-47) % Plt Count 202 (130-400) K/uL BMP 08/22/18 06:13 Sodium 140 Potassium 3.9 Chloride 109 H Carbon Dioxide 26 BUN 9 Creatinine 0.87 Glucose 92 Calcium 8.7 Medications Administered Current Inpatient Medications Acetaminophen (Tylenol) 650 mg PO Q4H PRN PRN Reason: Pain or Fever Stop: 09/19/18 16:46 Last Admin: 08/22/18 00:07 Dose: 650 mg Documented by: Aspirin (Ecotrin Ectab) 81 mg PO QAM [facility] Stop: 09/20/18 08:59 Last Admin: 08/22/18 08:39 Dose: 81 mg Documented by: Atorvastatin Calcium (Lipitor) 40 mg PO HS [facility] Stop: 09/19/18 20:59 Last Admin: 08/21/18 21:28 Dose: 40 mg Documented by: Buspirone HCl (Buspar) 10 mg PO BID [facility] Stop: 09/19/18 20:59 Last Admin: 08/22/18 08:37 Dose: 10 mg Documented by: Clopidogrel Bisulfate (Plavix) 75 mg PO QAM [facility] Stop: 09/20/18 08:59 Last Admin: 08/22/18 08:39 Dose: 75 mg Documented by: Dextrose (Dextrose 50%) 25 - 50 ml IV UD PRN; Protocol PRN Reason: Hypoglycemia Protocol Stop: 09/19/18 19:55 Enoxaparin Sodium (Lovenox) 40 mg SQ Q24H [facility] Stop: 09/19/18 20:59 Last Admin: 08/21/18 21:28 Dose: 40 mg Documented by: Fexofenadine HCl (Samia) 180 mg PO DAILY [facility] Stop: 09/20/18 08:59 Last Admin: 08/22/18 08:39 Dose: 180 mg Documented by: Gadobutrol (Gadavist 65ml) 7 ml IV ONCE PRN PRN Reason: Interaction Checking Stop: 08/24/18 20:33 Last Admin: 08/20/18 20:34 Dose: 7 ml Documented by: Glucagon (Glucagen) 1 mg SQ UD PRN; Protocol PRN Reason: Hypoglycemia Protocol Stop: 09/19/18 19:55 Glucose (Glucose 40%) 15 - 30 gm PO UD PRN; Protocol PRN Reason: Hypoglycemia Protocol Stop: 09/19/18 19:55 Glucose (Dex4 Glucose) 4 - 8 tabs PO UD PRN; Protocol PRN Reason: Hypoglycemia Protocol Stop: 09/19/18 19:55 Lorazepam (Ativan) 1 mg in 2 mls @ 2 mls/min IV ONE PRN PRN Reason: MRI pre med Stop: 09/19/18 17:12 Last Admin: 08/20/18 19:13 Dose: 1 mls/min Documented by: Insulin Aspart (Novolog Flexpen) 0 units SC ACHS [facility] Stop: 09/19/18 20:59 Last Admin: 08/22/18 08:40 Dose: Not Given Documented by: Miscellaneous (Carbohydrates For Hypoglycemia) 15 - 30 gm PO UD PRN PRN Reason: Hypoglycemia Treatment Stop: 09/19/18 19:55 Miscellaneous Information (Pharmacist Discharge Med Rec Consult) 1 ea N/A UD PRN PRN Reason: Consult Stop: 09/19/18 16:46 Montelukast Sodium (Singulair) 10 mg PO PM [facility] Stop: 09/19/18 20:59 Last Admin: 08/21/18 21:29 Dose: 10 mg Documented by: Morphine Sulfate (Morphine Sulfate) 2 mg IV Q4H PRN PRN Reason: Pain Stop: 09/04/18 03:43 Pyridoxine HCl (Vitamin B-6) 100 mg PO BID [facility] Stop: 09/19/18 20:59 Last Admin: 08/22/18 08:38 Dose: 100 mg Documented by: Venlafaxine HCl (Effexor Extended Release) 75 mg PO HS [facility] Stop: 09/19/18 20:59 Last Admin: 08/21/18 21:29 Dose: 75 mg Documented by: Vitamin D (Vitamin D3) 1,000 units PO DAILY [facility] Stop: 09/20/18 08:59 Last Admin: 08/22/18 08:38 Dose: 1,000 units Documented by:
[2018-08-22] MEDS ORDERED: STROKE PATIENT DISCHARGE STA (10:36)
--- NOTE | 2018-08-22 11:49 | Pharmacy Report ---
Pharmacist Stroke Counseling - Date of Service August 22, 2018 - Scope: Pharmacy has been consulted to provide medication discharge counseling for this patient admitted with [ischemic stroke] as per the Pharmacist Discharge Counseling for Stroke Patients Protocol. - Medications on Discharge: Home Medications Medication Instructions Recorded Confirmed atorvastatin 40 mg PO HS 08/20/18 08/20/18 buspirone 10 mg PO BID 08/20/18 08/20/18 cholecalciferol (vitamin D3) 1,000 unit PO DAILY 08/20/18 08/20/18 [Vitamin D3] clonidine HCl 0.1 mg PO TID 08/20/18 08/20/18 fexofenadine [Samia Allergy] 180 mg PO DAILY 08/20/18 08/20/18 methocarbamol 750 mg PO TID PRN 08/20/18 08/20/18 montelukast 10 mg PO PM 08/20/18 08/20/18 pyridoxine (vitamin B6) [Vitamin 100 mg PO BID 08/20/18 08/20/18 B-6] rabeprazole 20 mg PO DAILY PRN 08/20/18 08/20/18 selenium 200 mcg PO DAILY 08/20/18 08/20/18 venlafaxine 75 mg PO HS 08/20/18 08/20/18 amlodipine-benazepril 1 cap PO DAILY 08/22/18 08/22/18 New Rx's Medication Instructions Recorded aspirin 81 mg PO DAILY 21 Days #0 tab 08/22/18 atorvastatin 40 mg PO HS 30 Days #30 tab 08/22/18 clopidogrel 75 mg PO QAM 30 Days #30 tab 08/22/18 - Action: The above medications, specifically ones for stroke treatment/prophylaxis, have been reviewed in detail with the patient and/or patient billing representative(s) prior to discharge. This includes indication, common adverse reactions, drug interactions, and medication administration. Medication counseling has been employed using the teach-back method to ensure understanding. - Outcome: The patient and/or patient billing representative(s) have demonstrated understanding of the medications. Please note, they are aware that the pharmacist will call them within 72 hours post-discharge to confirm that the appropriate medications are being taken and answer any further medication related questions the patient might have at that time. Contact information Individual to be contacted: Patient Relationship to patient (if applicable): [] Phone number: [phone] Best time to call: anytime Additional comments: Spoke with Ms. Moran regarding medications. 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 Identified issue with med rec- patient is on amlodipine-benazepril not amlodipine atorvastatin 5/10 mg. Updated medication list. Also stated she was previously on atorvastatin 10 mg and is now on 40 mg and would need a prescription. Called and spoke with Dr. Marte who stated he would send the prescription for her. We also discussed the aspirin was to continue for 21 days as written from discharge instructions- 21 days would be 09/11 as the last day. Thank you for allowing pharmacy to be involved in the care of this patient. Please call [phone] with any additional questions
--- NOTE | 2018-08-23 08:24 | Discharge Summary ---
Date of Service August 23, 2018 Admission HPI Per Admitting Provider 63-year-old female who presents to the ED with difficulty speaking. Patient and her were driving back from [place], where they had been living since April after her underwent a double lung transplant. Around 1130, while driving, patient had difficulty speaking. She continued to drive for about another hour until they stopped at a restaurant for something to eat. Her symptoms continued and EMS was called and patient was brought to the ED for further evaluation. Stroke alert was called however patient was not felt to be a TPA candidate. With her symptoms today, there was no associated facial droop, slurred speech, unilateral weakness, numbness, tingling. No headache or blurred vision. Patient reports she has been feeling well recently, however has been under a large amount of stress secondary to her 's recent health issues. Patient denies chest pain shortness of breath. No lightheadedness, dizziness, diaphoresis, syncopal events. She denies abdominal pain, nausea, vomiting, diarrhea. No fevers chills. She denies any urinary symptoms. In the ED, head CT and head/neck CTA are negative for acute findings. Patient was given a full dose aspirin. Admission Exam Per Admitting Provider Vital Signs (Past 24 Hours): Last Vital Signs Temp 36.8 C 08/20/18 13:22 Pulse 96 H 08/20/18 13:56 Resp 18 08/20/18 13:56 BP 152/59 H 08/20/18 13:56 Pulse Ox 99 08/20/18 13:56 Constitutional: WD/WN, vitals as above Eyes: PERRL, conjunctivae normal, anicteric sclerae ENMT: external ear and nose normal, oropharynx normal Respiratory: normal respiratory effort, lungs clear to auscultation Cardiovascular: Rate/Rhythm: regular rate and regular rhythm Vessels: normal peripheral pulses Extremities: no edema Gastrointestinal (Abdomen): normal bowel sounds, soft, nontender, no hepatosplenomegaly Musculoskeletal: no cyanosis or clubbing, extremities motor strength 5/5 Skin: no rashes, warm and dry Neurologic: awake Speech / Cognition: + expressive aphasia (Mild) Motor/Sensory: no pronator drift Cranial Nerves: PERRL, normal accommodation, EOM intact bilaterally, normal facial strength, tongue midline, able to rotate head bilaterally and no nystagmus Coordination: normal tktyjw-nh-mdee test and normal jcdc-ez-ohaw test Psychiatric: A+Ox3, euthymic affect Principal Diagnosis 3.8 x 2.6 cm acute infarct within the left parietal lobe, no hemorrhage and no mass-effect, no significant neuro deficit, Depression Discharge Exam Constitutional WD/WN, vitals as above Eyes PERRL, conjunctivae normal, anicteric sclerae ENMT external ear and nose normal, oropharynx normal Respiratory normal respiratory effort, lungs clear to auscultation Cardiovascular Rate/Rhythm: regular rate and regular rhythm Vessels: normal peripheral pulses Extremities: no edema Gastrointestinal (Abdomen) normal bowel sounds, soft, nontender, no hepatosplenomegaly Musculoskeletal no cyanosis or clubbing, extremities motor strength 5/5 Skin no rashes, warm and dry Neurologic PERRL, EOMI, accommodation nl, no face palsy, no dysarthria awake Speech / Cognition: + expressive aphasia (Mild) Motor/Sensory: no pronator drift Cranial Nerves: PERRL, normal accommodation, EOM intact bilaterally, normal facial strength, tongue midline, able to rotate head bilaterally and no nystagmus Coordination: normal oqhgtc-su-davm test and normal bpxs-ci-aeqs test Psychiatric A+Ox3, euthymic affect Orientation: alert and oriented x 3 Motor Behavior: + psychomotor retardation Affect: + depressed affect Discharge Data Allergies Allergy/AdvReac Type Severity Reaction Status Date / Time No Known Drug Allergies Allergy Unknown . Verified 08/20/18 17:19 Consultations 08/20/18 14:26 ED Decision to Admit Stat 08/20/18 16:47 Consult Case Management - Discharge Planning Routine Consult Neurology Routine Ordered Studies 08/20/18 13:24 CT angio head w con Stat CT angio neck with con Stat CT head/brain wo con Stat 08/20/18 15:02 MR brain wo/w con Routine 08/21/18 14:48 CT head/brain wo con Routine Hospital Course (1) Expressive aphasia: -Has 3.8 x 2.6 cm acute infarct within left parietal lobe. No mass effect. No hemorrhage. -Patient and her were driving home from [place] (where they have been living since April since patient's underwent double lung transplant), when patient developed sudden onset of difficulty speaking -Risk factors for CVA: HTN, dyslipidemia, current smoker; no history of diabetes, however glucose 197 on labs -CT head, CTA head/neck negative for acute findings -Patient received full dose aspirin in the ED -Neurochecks -Continue aspirin 81 mg daily and Plavix added -Neurology consult, case discussed with Azra Seymour PA-C -Echo : Normal left ventricular wall thickness and wall motion. EF was 5-70%. Mild to moderate aortic regurgitation. There is 1.5 x 1.8 cm non-mobile echodensity consistent with dense focal posterior mitral annular calcification. Trace to small loculated anterior pleural effusion. There is no echocardiographic indication of cardiac tamponade. Compared to prior study on 01/01/2018 no significant interval change observed. -Feeling a lot better with minimal dysphasia but no other neuro deficit -Looks very depressed otherwise hemodynamically stable -Denies any symptoms -Did very well on physical therapy -We will get PT and OT evaluation (2) Hypertension: -Will hold home doses of clonidine and amlodipine/benazepril to allow for permissive hypertension in the setting of possible acute CVA -BP is controlled (3) Hyperglycemia: -Glucose noted to be 197 on labs -No history of diabetes -will check BSG's, providing NovoLog if needed -Check Hgb A1c-6.0 -Advised to continue with diabetic diet and exercise (4) Dyslipidemia: -Continue statin -Cholesterol are within normal range (5) Depression: -Continue BuSpar and venlafaxine -Acute depression with symptoms Did not want to have any extra medications- (6) DVT prophylaxis: -SQ Lovenox -We will get PT and OT evaluation -Possible discharge following neurological evaluation Will discharge home this morning Total Time Total Time Spent Total Time Spent (In Minutes): 35 minutes Total Time Includes: Examination of the Patient, Discharge Planning, Medication Reconciliation and Communication With Other Providers Discharge Plan Discharge Items Patient Disposition: Home - Self-Care Reason For Visit: APHASIA Discharge Diagnosis: 3.8 x 2.6 cm acute infarct within the left parietal lobe, no hemorrhage and no mass-effect, no significant neuro deficit, Depression Condition: Good Discharge Goals: Decrease discomfort, Improve function and Increase independence Activity: Resume your previous activity Non-emergency contact: Primary Care Provider Call non-emergency contact if: you have any medication questions and your symptoms worsen Follow-up/Referrals: Dulce Whittaker DO [Primary Care Provider] - 08/25/18 12:25 pm (Your appointment is with haroon Vasquez PA-C on 25 August at 12:25 PM. You need to be seen by neurologist in [facility].) Diet: Carb Consistent or DM2 and Heart Healthy Addtl Provider Instructions: Risk Factors for Stroke: You can reduce your chances of stroke by working with your medical provider to adopt a healthy lifestyle. Some specific ways to lower your chance of stroke are: * If you are a smoker, now is the time to stop smoking cigarettes * If you are diabetic, improve the control of your blood sugars * Avoid excessive amounts of alcohol * Control high blood pressure * Lose weight if you are overweight * Be sure to lead an active lifestyle * Eat a healthy diet low in salt, cholesterol and fat You should know about other risk factors for stroke that you are unable to control. These include: * Age 55 years or older * Male gender * Certain racial groups: , or / * Family History of Stroke, Mini stroke or Heart Attack * Sickle Cell Disease Follow Up: It is important for you to keep your follow up appointments with your medical provider. Who to Call and When: Medical Emergencies: Call 911 immediately if you experience any of the following warning signs and symptoms of Stroke: * Sudden numbness or weakness of the face, arm or leg, especially on one side of the body * Sudden confusion, trouble speaking or understanding * Sudden trouble seeing in one or both eyes * Sudden trouble walking, dizziness, loss of balance or coordination * Sudden severe headache with no cause Do not delay calling 911 if you experience any warning signs or symptoms of a stroke. Delay in seeking medical attention may affect what treatments can be given to you. Continue Aspirin and Plavix for 21 days and then Continue Plavix only. . Prescriptions: New clopidogrel 75 mg Tablet 75 mg PO QAM 30 Days Qty: 30 RF: 0 atorvastatin 40 mg Tablet 40 mg PO HS 30 Days Qty: 30 RF: 0 Continued atorvastatin 40 mg Tablet 40 mg PO HS RF: 0 clonidine HCl 0.1 mg Tablet 0.1 mg PO TID RF: 0 venlafaxine 75 mg Capsule,Extended Release 24hr 75 mg PO HS RF: 0 rabeprazole 20 mg Tablet,Delayed Release (Dr/Ec) 20 mg PO DAILY PRN (Reason: dyspepsia) RF: 0 fexofenadine [Samia Allergy] 180 mg Tablet 180 mg PO DAILY RF: 0 methocarbamol 750 mg Tablet 750 mg PO TID PRN (Reason: Muscle Pain) RF: 0 buspirone 10 mg Tablet 10 mg PO BID RF: 0 montelukast 10 mg Tablet 10 mg PO PM RF: 0 pyridoxine (vitamin B6) [Vitamin B-6] 100 mg Tablet 100 mg PO BID RF: 0 cholecalciferol (vitamin D3) [Vitamin D3] 1,000 unit Capsule 1,000 unit PO DAILY RF: 0 selenium 200 mcg Capsule 200 mcg PO DAILY RF: 0 aspirin 81 mg Tablet,Delayed Release (Dr/Ec) 81 mg PO DAILY 21 Days Qty: 0 RF: 0 No Action amlodipine-benazepril 5-10 mg Capsule 1 cap PO DAILY RF: 0 Stand-Alone Forms: Medications to Prevent Stroke, [facility]/Other Patient Handouts: Prediabetes, Diabetes Meal Planning Discharge Orders: Discharge Order (Routine); Ordered 08/22/18 Ordered By: Shamir Marte Admission Data Admit Date/Time: 08/20/18 14:59 Attending Provider: Shamir Marte Admit Provider: Olvin Velez Primary Care Provider: Dulce Whittaker. Other Providers: Olvin Velez ; Juan Levine Service: Telemetry Other Interventions: Discharge Summary Assessment (RN) Last Done: 08/22/18 11:23 DC Date/Time DO NOT enter until pt leaves facility: 08/22/18 11:52
--- NOTE | 2018-08-25 12:41 | Pharmacy Report ---
Pharmacist Post D/C Phone Note - Phone Note: Date of phone call: August 25, 2018. Individual with whom pharmacist spoke to: AUBREY JIMÉNEZ The following questions were reviewed during the phone call with responses listed below each: Can you tell me the medications that you are currently taking as well as when and how you take each medication? -See Table Below When have you missed any doses of your medications? - no What side effects are you having from your medications, specifically, the new medications you were started on? - diarrhea, potentially from Lipitor but waiting it out What questions do you have about your medications? - no What problems are you having obtaining your medications? - none When is your next appointment with your primary care doctor? - now, patient in waiting room Additional comments: - updated medication list. As per the Pharmacist Discharge Counseling for Stroke Patients Protocol, this phone call has been completed within 72 hours of discharge. Thank you for allowing us to be involved in the care of this patient. - Home Medications: Home Medications Medication Instructions Recorded Confirmed atorvastatin 40 mg PO HS 08/20/18 08/20/18 buspirone 10 mg PO BID 08/20/18 08/20/18 cholecalciferol (vitamin D3) 1,000 unit PO DAILY 08/20/18 08/20/18 [Vitamin D3] clonidine HCl 0.1 mg PO TID PRN 08/20/18 08/20/18 fexofenadine [Samia Allergy] 180 mg PO DAILY 08/20/18 08/20/18 methocarbamol 750 mg PO TID PRN 08/20/18 08/20/18 montelukast 10 mg PO PM 08/20/18 08/20/18 pyridoxine (vitamin B6) [Vitamin 100 mg PO BID 08/20/18 08/20/18 B-6] rabeprazole 20 mg PO DAILY PRN 08/20/18 08/20/18 selenium 200 mcg PO DAILY 08/20/18 08/20/18 venlafaxine 75 mg PO HS 08/20/18 08/20/18 amlodipine-benazepril 1 cap PO DAILY 08/22/18 08/22/18 calcium carbonate [Tums] 1 tab PO BID 08/25/18 08/25/18 New Rx's Medication Instructions Recorded aspirin 81 mg PO DAILY 21 Days #0 tab 08/22/18 atorvastatin 40 mg PO HS 30 Days #30 tab 08/22/18 clopidogrel 75 mg PO QAM 30 Days #30 tab 08/22/18
== END 2018-08-22 11:52 | disposition home or self-care (01) | DRG 66 ==
LOC: ED 13:14 → 2E 14:59